=== PATIENT | male | born 1950 | race Caucasian/White ===

== ENCOUNTER 2016-06-20 11:30 | Emergency (ER) | payer OTHER ==
[~2016-06-20] VITALS: Ht 167.6 cm; Wt 65.0 kg
[2016-06-20 11:33] VITALS: BP 164/98; PULSE 101; RESP 17; TEMP 97.9; O2SAT 95
--- NOTE | 2016-06-20 13:31 | PD ---
HPI Chief Complaint: Anxiety Time Seen by Provider: 13:31 Travel History International Travel<30 days: No Contact w/Intl Traveler<30days: No Traveled to known affect area: No History of Present Illness HPI 65-year-old male presents to the emergency Department with complaint of chest pain and shortness of breath this morning that has resolved and he is requesting an EKG. Patient has history of anxiety and he took Xanax with resolution of symptoms. He presents because he was concerned because his symptoms lingered longer than normal. Pain was located mid sternum. It came and went, for a couple hours, and lasted about a minute each time. Denies chest pain or shortness of breath was worse with exertion. Reports dizziness accompanied with shortness of breath and chest pain. Reports heart rate and blood pressure were elevated. Reports history of heart attack and PE. Denies anticoagulants. Denies hemoptysis. Denies leg edema. Denies fever, chills, nausea, vomiting. Denies current symptoms of chest pain, shortness of breath, or dizziness. Reports tobacco use daily. Has not taken any other medications, other than the Xanax, to alleviate his symptoms. Had heart catheterization about 6 years ago. Is from [place] and has primary care at the [place]. No known allergies. No other modifying factors or associated signs and symptoms. [facility] Social History Tobacco Use: Yes Allergies-Medications (Allergen,Severity, Reaction): Coded Allergies: No Known Allergies (Unverified , 06/20/16) Reported Meds & Prescriptions Reported Meds & Active Scripts Active Reported Xanax (Alprazolam) 0.25 Mg Tab 0.25 Mg PO Q4H PRN Review of Systems Except as stated in HPI: all other systems reviewed are Neg Physical Exam Narrative GENERAL: Well-nourished, well-developed male patient, in no acute distress SKIN: Warm and dry. HEAD: Atraumatic. Normocephalic. EYES: Pupils equal and round. No scleral icterus. No injection or drainage. ENT: Mucosa pink and moist. Airway patent. NECK: Trachea midline. CARDIOVASCULAR: Regular rate and rhythm. No murmur appreciated. RESPIRATORY: No accessory muscle use. Clear to auscultation. Breath sounds equal bilaterally. GASTROINTESTINAL: Abdomen soft, non-tender, nondistended. Hepatic and splenic margins not palpable. Bowel sounds are active 4 quadrants. MUSCULOSKELETAL: No obvious deformities. No clubbing. No cyanosis. No edema. NEUROLOGICAL: Awake and alert. Oriented 3. No obvious cranial nerve deficits. Motor grossly within normal limits. Normal speech. PSYCHIATRIC: Appropriate mood and affect; insight and judgment normal. Data Data Last Documented VS Vital Signs Date Time Temp Pulse Resp B/P Pulse Ox O2 Delivery O2 Flow Rate FiO2 06/20/16 15:52 54 18 156/81 96 Room Air 06/20/16 11:33 97.9 Orders Electrocardiogram (06/20/16 13:43) Basic Metabolic Panel (Bmp) (06/20/16 13:43) Complete Blood Count With Diff (06/20/16 13:43) Magnesium (Mg) (06/20/16 13:43) Prothrombin Time / Inr (Pt) (06/20/16 13:43) Act Partial Throm Time (Ptt) (06/20/16 13:43) Troponin I (06/20/16 13:43) Chest, Single Ap (06/20/16 13:43) Ecg Monitoring (06/20/16 13:43) Iv Access Insert/Monitor (06/20/16 13:43) Oximetry (06/20/16 13:43) Oxygen Administration (06/20/16 13:43) Aspirin Chew (Aspirin Chew) (06/20/16 13:45) Sodium Chloride 0.9% Flush (Ns Flush) (06/20/16 13:45) Labs Laboratory Tests Test 06/20/16 14:45 White Blood Count 7.7 TH/MM3 Red Blood Count 4.51 MIL/MM3 Hemoglobin 15.1 GM/DL Hematocrit 44.4 % Mean Corpuscular Volume 98.3 FL Mean Corpuscular Hemoglobin 33.5 PG Mean Corpuscular Hemoglobin 34.0 % Concent Red Cell Distribution Width 13.3 % Platelet Count 205 TH/MM3 Mean Platelet Volume 8.6 FL Neutrophils (%) (Auto) 72.5 % Lymphocytes (%) (Auto) 19.3 % Monocytes (%) (Auto) 7.2 % Eosinophils (%) (Auto) 0.6 % Basophils (%) (Auto) 0.4 % Neutrophils # (Auto) 5.6 TH/MM3 Lymphocytes # (Auto) 1.5 TH/MM3 Monocytes # (Auto) 0.6 TH/MM3 Eosinophils # (Auto) 0.0 TH/MM3 Basophils # (Auto) 0.0 TH/MM3 CBC Comment DIFF FINAL Differential Comment Prothrombin Time 10.5 SEC Prothromb Time International 1.0 RATIO Ratio Activated Partial 26.6 SEC Thromboplast Time Sodium Level 140 MEQ/L Potassium Level 4.0 MEQ/L Chloride Level 103 MEQ/L Carbon Dioxide Level 30.2 MEQ/L Anion Gap 7 MEQ/L Blood Urea Nitrogen 12 MG/DL Creatinine 0.77 MG/DL Estimat Glomerular Filtration 102 ML/MIN Rate Random Glucose 90 MG/DL Calcium Level 8.9 MG/DL Magnesium Level 2.2 MG/DL Troponin I LESS THAN 0.02 NG/ML MDM Medical Decision Making Medical Screen Exam Complete: Yes Emergency Medical Condition: Yes Medical Record Reviewed: Yes Differential Diagnosis Chest pain, PE, NV, ACS, anxiety Narrative Course 65-year-old male with recurrent episodes of chest pain and shortness of breath this morning that lasted about 1 minute at a time, and waxed and waned for a few hours. Has no current symptoms. Has history of anxiety, NV, PE. Ports tobacco use daily. He came in because his symptoms lasted longer than they normally do. He has taken a Xanax prior to arrival. Here from [place]. Patient of the [place]. Treatment initiated in [facility]. Care of patient will be transferred to alternate provider when medical bed is available. Nicole Velazquez Jun 20, 2016 13:31
[2016-06-20] MEDS ORDERED: SODIUM CHLORIDE 0.9% FLUSH 5 ML FLUSH IVF PRN (13:45)
[2016-06-20] MEDS ORDERED: ASPIRIN 81 MG CHEW TAB PO ONE (13:45)
[2016-06-20] MEDS ORDERED: ALPR.25 PO (14:01)
--- NOTE | 2016-06-20 14:49 | RADRPT ---
EXAM DATE/TIME: 06/20/2016 14:13 [place] COMPARISON: No previous studies available for comparison. INDICATIONS : Chest Pain MEDICAL HISTORY : None. SURGICAL HISTORY : None. ENCOUNTER: Initial ACUITY: 1 day PAIN SCORE: 0/10 LOCATION: Bilateral chest FINDINGS: A single view of the chest demonstrates the lungs to be symmetrically aerated without evidence of mas s, infiltrate or effusion. The cardiomediastinal contours are unremarkable. Osseous structures are intact. CONCLUSION: No acute disease. Nhan Dyer MD on June 20, 2016 at 14:46 Board Certified Radiologist. This report was verified electronically.
[2016-06-20 15:05] LABS: AUTOMATED NEUTROPHIL # 5.6 TH/MM3 (1.8-7.7); BASOPHIL % 0.4 % (0.0-2.0); EOSINOPHIL % 0.6 % (0.0-4.0); HEMATOCRIT 44.4 % (39.0-51.0); HEMO FLAGS DIFF FINAL; LYMPH % 19.3 % (9.0-44.0); LYMPHOCYTE # 1.5 TH/MM3 (1.0-4.8); MEAN CELL VOLUME 98.3 FL (80.0-100.0); MEAN CORPUSCULAR HEMOGLOBIN 33.5 PG (27.0-34.0); MONO % 7.2 % (0.0-8.0); NEUT % 72.5 % (16.0-70.0); PLATELET COUNT 205 TH/MM3 (150-450); RED BLOOD COUNT 4.51 MIL/MM3 (4.50-5.90); RED CELL DISTRIBUTION WIDTH 13.3 % (11.6-17.2); WHITE BLOOD COUNT 7.7 TH/MM3 (4.0-11.0)
[2016-06-20 15:11] LABS: APTT (PATIENT) 26.6 SEC (24.3-30.1); PROTHROMBIN TIME - PATIENT 10.5 SEC (9.8-11.6)
[2016-06-20 15:36] LABS: ANION GAP 7 MEQ/L (5-15); BICARBONATE 30.2 MEQ/L (21.0-32.0); BLOOD UREA NITROGEN 12 MG/DL (7-18); CHLORIDE 103 MEQ/L (98-107); GLOMERULAR FILTRATION RATE 102 ML/MIN (>89); MAGNESIUM 2.2 MG/DL (1.5-2.5); SODIUM (NA) 140 MEQ/L (136-145)
[2016-06-20 15:52] VITALS: BP 156/81; PULSE 54; RESP 18; O2SAT 96
--- NOTE | 2016-06-20 16:39 | PD ---
Data Data Last Documented VS Vital Signs Date Time Temp Pulse Resp B/P Pulse Ox O2 Delivery O2 Flow Rate FiO2 06/20/16 15:52 54 18 156/81 96 Room Air 06/20/16 11:33 97.9 Orders Electrocardiogram (06/20/16 13:43) Basic Metabolic Panel (Bmp) (06/20/16 13:43) Complete Blood Count With Diff (06/20/16 13:43) Magnesium (Mg) (06/20/16 13:43) Prothrombin Time / Inr (Pt) (06/20/16 13:43) Act Partial Throm Time (Ptt) (06/20/16 13:43) Troponin I (06/20/16 13:43) Chest, Single Ap (06/20/16 13:43) Ecg Monitoring (06/20/16 13:43) Iv Access Insert/Monitor (06/20/16 13:43) Oximetry (06/20/16 13:43) Oxygen Administration (06/20/16 13:43) Aspirin Chew (Aspirin Chew) (06/20/16 13:45) Sodium Chloride 0.9% Flush (Ns Flush) (06/20/16 13:45) Labs Laboratory Tests Test 06/20/16 14:45 White Blood Count 7.7 TH/MM3 Red Blood Count 4.51 MIL/MM3 Hemoglobin 15.1 GM/DL Hematocrit 44.4 % Mean Corpuscular Volume 98.3 FL Mean Corpuscular Hemoglobin 33.5 PG Mean Corpuscular Hemoglobin 34.0 % Concent Red Cell Distribution Width 13.3 % Platelet Count 205 TH/MM3 Mean Platelet Volume 8.6 FL Neutrophils (%) (Auto) 72.5 % Lymphocytes (%) (Auto) 19.3 % Monocytes (%) (Auto) 7.2 % Eosinophils (%) (Auto) 0.6 % Basophils (%) (Auto) 0.4 % Neutrophils # (Auto) 5.6 TH/MM3 Lymphocytes # (Auto) 1.5 TH/MM3 Monocytes # (Auto) 0.6 TH/MM3 Eosinophils # (Auto) 0.0 TH/MM3 Basophils # (Auto) 0.0 TH/MM3 CBC Comment DIFF FINAL Differential Comment Prothrombin Time 10.5 SEC Prothromb Time International 1.0 RATIO Ratio Activated Partial 26.6 SEC Thromboplast Time Sodium Level 140 MEQ/L Potassium Level 4.0 MEQ/L Chloride Level 103 MEQ/L Carbon Dioxide Level 30.2 MEQ/L Anion Gap 7 MEQ/L Blood Urea Nitrogen 12 MG/DL Creatinine 0.77 MG/DL Estimat Glomerular Filtration 102 ML/MIN Rate Random Glucose 90 MG/DL Calcium Level 8.9 MG/DL Magnesium Level 2.2 MG/DL Troponin I LESS THAN 0.02 NG/ML MDM Supervised Visit with SHERRY: Yes Narrative Course I, Dr. Keen, have reviewed the advance practice practioner's documentation and am in agreement, met with the patient face to face, made the diagnosis, and the medical decision making was done by me. *My assessment and Findings: 65-year-old male with history of previous PE no longer anticoagulated, questionable previous NM here with complaint of chest pain, shortness of breath and anxiety. Patient had a substernal chest discomfort, achy, pressure with associated anxiety. Patient has history of anxiety and thought that this was just his anxiety, took a Xanax without much relief prompting his ER visit. Patient denies any recent travel, leg edema. He felt slightly short of breath during this spell but has not felt shortness of breath in the interim. Patient had a cardiac catheter 6 years ago but is unable to tell me whether he had any stent placement on the he does not believe so. Patient is well-appearing on exam, minimally anxious, fidgeting. Regular rate and rhythm, borderline tachycardia with heart rate in the 50s to 60s. No reproducible tenderness to palpation and clear to auscultation bilaterally. Differential includes ACS, atypical chest pain, anxiety, PE. Patient seen initially by mid-level in our provider in triage area and twelve-lead EKG shows sinus bradycardia but no acute abnormalities, ST abnormalities. Laboratory workup obtained but no d-dimer. Laboratory workup was negative. Given patient' s age and risk factors my recommendation was to obtain d-dimer and serial cardiac enzymes and provocative testing in her chest pain center if dimer is negative. Patient declined, wanting to go home and left AMA. AMA: The risks of leaving against medical advice without further evaluation treatment were discussed with the patient. These risks include cardiac dysfunction, cardiac dysrhythmia, possible heart attack, possible stroke or . The patient indicated understanding of these risks and appeared to have the capacity to make this decision. April Keen MD Jun 20, 2016 16:39
--- NOTE | 2016-06-20 17:26 | PD ---
HPI Chief Complaint: Anxiety Time Seen by Provider: 17:21 Travel History International Travel<30 days: No Contact w/Intl Traveler<30days: No Traveled to known affect area: No History of Present Illness HPI 65 year-old male with history of hypertension, PE, currently not taking any medication and tobacco cigarette smoking presents to emergency department for evaluation what he believes was anxiety. Patient was seen and evaluated initially by SHWETHA Kapadia. Patient reports anxiety that has lasted throughout the morning. He had an episode where he had a chest discomfort and generalized not feeling well with associated lightheadedness. He took a friend' s Xanax and this did not help with his symptoms. He denies any chest pain. No shortness of breath. No nausea vomiting. No episodes of diaphoresis. He has no other symptoms to report. PFSH Past Medical History Blood Disorders: Yes Anxiety: Yes Hypertension: Yes Tetanus Vaccination: < 5 Years Social History Alcohol Use: Yes (4 beers daily) Tobacco Use: Yes (1 ppk) Substance Use: No Allergies-Medications (Allergen,Severity, Reaction): Coded Allergies: No Known Allergies (Unverified , 06/20/16) Reported Meds & Prescriptions Reported Meds & Active Scripts Active Reported Xanax (Alprazolam) 0.25 Mg Tab 0.25 Mg PO Q4H PRN Review of Systems Except as stated in HPI: all other systems reviewed are Neg Physical Exam Narrative GENERAL: Well-nourished male patient, ambulatory and in no acute distress SKIN: Warm and dry. HEAD: Atraumatic. Normocephalic. EYES: Pupils equal and round. No scleral icterus. No injection or drainage. ENT: No nasal bleeding or discharge. Mucous membranes pink and moist. NECK: Trachea midline. No JVD. CARDIOVASCULAR: Regular rate and rhythm. No murmur appreciated. RESPIRATORY: No accessory muscle use. Coarse, diminished to auscultation. Breath sounds equal bilaterally. GASTROINTESTINAL: Abdomen soft, non-tender, nondistended. Hepatic and splenic margins not palpable. MUSCULOSKELETAL: No obvious deformities. No clubbing. No cyanosis. No edema. NEUROLOGICAL: Awake and alert. No obvious cranial nerve deficits. Motor grossly within normal limits. Normal speech. PSYCHIATRIC: Appropriate mood and affect; insight and judgment normal. Data Data Last Documented VS Vital Signs Date Time Temp Pulse Resp B/P Pulse Ox O2 Delivery O2 Flow Rate FiO2 3/14/17 15:52 54 18 156/81 96 Room Air 06/20/16 11:33 97.9 Orders Electrocardiogram (06/20/16 13:43) Basic Metabolic Panel (Bmp) (06/20/16 13:43) Complete Blood Count With Diff (06/20/16 13:43) Magnesium (Mg) (06/20/16 13:43) Prothrombin Time / Inr (Pt) (06/20/16 13:43) Act Partial Throm Time (Ptt) (06/20/16 13:43) Troponin I (06/20/16 13:43) Chest, Single Ap (06/20/16 13:43) Ecg Monitoring (06/20/16 13:43) Iv Access Insert/Monitor (06/20/16 13:43) Oximetry (06/20/16 13:43) Oxygen Administration (06/20/16 13:43) Aspirin Chew (Aspirin Chew) (06/20/16 13:45) Sodium Chloride 0.9% Flush (Ns Flush) (06/20/16 13:45) Labs Laboratory Tests Test 06/20/16 14:45 White Blood Count 7.7 TH/MM3 Red Blood Count 4.51 MIL/MM3 Hemoglobin 15.1 GM/DL Hematocrit 44.4 % Mean Corpuscular Volume 98.3 FL Mean Corpuscular Hemoglobin 33.5 PG Mean Corpuscular Hemoglobin 34.0 % Concent Red Cell Distribution Width 13.3 % Platelet Count 205 TH/MM3 Mean Platelet Volume 8.6 FL Neutrophils (%) (Auto) 72.5 % Lymphocytes (%) (Auto) 19.3 % Monocytes (%) (Auto) 7.2 % Eosinophils (%) (Auto) 0.6 % Basophils (%) (Auto) 0.4 % Neutrophils # (Auto) 5.6 TH/MM3 Lymphocytes # (Auto) 1.5 TH/MM3 Monocytes # (Auto) 0.6 TH/MM3 Eosinophils # (Auto) 0.0 TH/MM3 Basophils # (Auto) 0.0 TH/MM3 CBC Comment DIFF FINAL Differential Comment Prothrombin Time 10.5 SEC Prothromb Time International 1.0 RATIO Ratio Activated Partial 26.6 SEC Thromboplast Time Sodium Level 140 MEQ/L Potassium Level 4.0 MEQ/L Chloride Level 103 MEQ/L Carbon Dioxide Level 30.2 MEQ/L Anion Gap 7 MEQ/L Blood Urea Nitrogen 12 MG/DL Creatinine 0.77 MG/DL Estimat Glomerular Filtration 102 ML/MIN Rate Random Glucose 90 MG/DL Calcium Level 8.9 MG/DL Magnesium Level 2.2 MG/DL Troponin I LESS THAN 0.02 NG/ML MDM Medical Decision Making Medical Screen Exam Complete: Yes Emergency Medical Condition: Yes Medical Record Reviewed: Yes Differential Diagnosis Anxiety versus ACS versus near syncope versus electrolyte abnormality versus PE Narrative Course 65-year-old male presents to emergency department for evaluation. Patient appears without distress. Initially his heart rate is elevated and then becomes bradycardic. He verbalizes frustration when moved to a medical pod for further evaluation. CBC and BMP are without acute concern. Troponin is less than 0.02. I discussed the patient and managing physician Dr. Keen who recommends based on the patient's history adding a d-dimer. The patient would also benefit from chest pain center. I have discussed this with the patient. He states that he does not want to stay here in the emergency department. He does not want any further workup completed. I explained to him that that is his choice and he is able to make that decision however if he does choose to leave it well be AGAINST MEDICAL ADVICE and he verbalizes understanding that by leaving his condition may worsen and may result in . He is competent to make this decision and she is asleep at this time AGAINST MEDICAL ADVICE. Diagnosis Primary Impression: Chest pain Qualified Code: R07.9 - Chest pain, unspecified type Patient Instructions: General Instructions Departure Forms: Tests/Procedures Disposition: AGAINST MEDICAL ADVICE Condition: Stable Gonzalez,Gale TADEO Jun 20, 2016 17:26
--- NOTE | 2016-06-21 20:18 | EKG ---
Date Performed: 06/20/2016 Time Performed: 14:39:04 PTAGE: 65 years EKG: SINUS BRADYCARDIA BORDERLINE ECG NO PREVIOUS TRACING DOCTOR: Evon Chatman Interpretating Date/Time 06/21/2016 20:17:11
== END 2016-06-20 16:29 | disposition left against medical advice (07) ==
LOC: NEPB 11:30 → NEPE 16:29
DX: R07.9 Chest pain, unspecified (principal); Z53.21 Procedure and treatment not carried out due to patient leaving prior to being seen by health care provider; R42 Dizziness and giddiness; R06.02 Shortness of breath; R94.31 Abnormal electrocardiogram [ECG] [EKG]; I10 Essential (primary) hypertension; F41.9 Anxiety disorder, unspecified; Z72.0 Tobacco use
CPT/HCPCS: 71010; 80048; 83735; 84484; 85025; 85610; 85730; 93005